=== PATIENT | male | born 1960 | race Hispanic/Latino ===

== ENCOUNTER 2018-06-07 11:14 | Emergency (ER) | payer BC, OTHER ==
[2018-06-07] MEDS ORDERED: Lidocaine 1% 20 ML MDV ONE (12:09)
--- NOTE | 2018-06-07 12:40 | RAD ---
LEFT KNEE 4 VIEWS: HISTORY: Trauma, left knee pain. FINDINGS: No acute fracture or dislocation is identified. POS: [facility]
--- NOTE | 2018-06-07 12:41 | RAD ---
LEFT HAND 3 VIEWS: HISTORY: Left hand pain, injury. FINDINGS: No acute fracture or dislocation is identified. POS: [facility]
--- NOTE | 2018-06-07 12:41 | RAD ---
LEFT LEG 2 VIEWS: History Injury, left leg pain, and laceration. FINDINGS: The left tibia and fibula appear intact. POS: [facility]
--- NOTE | 2018-06-07 12:42 | RAD ---
PA AND LATERAL VIEWS CHEST: History Trauma, chest pain. FINDINGS: The heart size is normal. The lungs are expanded without lobar consolidation, pneumothoraces, or ple ural effusions. No acute osseous abnormalities are seen. IMPRESSION: No radiographic evidence of acute cardiopulmonary process. POS: [facility]
[2018-06-07] MEDS ORDERED: Bacitracin Zinc 1 Packet ONE (13:15)
== END 2018-06-07 13:30 | disposition home or self-care (01) ==
LOC: SCSER 11:14
DX: S63.92XA Sprain of unspecified part of left wrist and hand, initial encounter (principal); S81.012A Laceration without foreign body, left knee, initial encounter; S81.812A Laceration without foreign body, left lower leg, initial encounter; F32.9 Major depressive disorder, single episode, unspecified; E78.1 Pure hyperglyceridemia; Z79.899 Other long term (current) drug therapy; V29.9XXA Motorcycle rider (driver) (passenger) injured in unspecified traffic accident, initial encounter
CPT/HCPCS: 12002; 71046; J2001

== ENCOUNTER 2018-06-17 12:01 | Emergency (ER) | payer BC, OTHER | END 2018-06-17 12:41 | disposition home or self-care (01) | LOC: SCSER 12:01 | DX: S81.011D Laceration without foreign body, right knee, subsequent encounter (principal); S81.812D Laceration without foreign body, left lower leg, subsequent encounter; E78.1 Pure hyperglyceridemia; E78.5 Hyperlipidemia, unspecified; F32.9 Major depressive disorder, single episode, unspecified; Z79.899 Other long term (current) drug therapy ==

== ENCOUNTER 2019-03-16 11:57 | Emergency (ER) | payer BC | END 2019-03-16 12:57 | disposition home or self-care (01) | LOC: SCSER 11:57 | DX: S61.431A Puncture wound without foreign body of right hand, initial encounter (principal); F32.9 Major depressive disorder, single episode, unspecified; E78.2 Mixed hyperlipidemia; Z79.899 Other long term (current) drug therapy; V18.0XXA Pedal cycle driver injured in noncollision transport accident in nontraffic accident, initial encounter | CPT/HCPCS: 99283 ==

== ENCOUNTER 2019-12-09 08:14 | Outpatient (CLI) | payer BC ==
--- NOTE | 2019-12-09 09:24 | ULT ---
ULTRASOUND ABDOMEN: HISTORY: Irritable bowel syndrome with diarrhea. COMPARISON: None. FINDINGS: Real-time, escalante scale, color Doppler, and spectral analysis of the abdomen was performed. Visualized portions of the pancreas and IVC are unremarkable. The proximal aorta measures 3.6 cm in size, abnormally dilated. Diffuse increased hepatic echotexture. No hepatic mass is appreciated. Liver measures 20 cm in length, elongated. Portal vein is patent with antegrade flow. Common bile duct is normal measuring 2 mm. Gallbladder is normal. No pericholecystic fluid. No cholelithiasis. The right kidney measures 11.4 x 6.5 x 4.9 cm without mass, hydronephrosis, or abnormal calcification s. The left kidney measures 12 x 4.1 x 5.1 cm without mass, hydronephrosis, or abnormal calcificatio ns. The splenic length is 12 cm, upper limits of normal. IMPRESSION: 1. Mild hepatomegaly and diffuse hepatic steatosis. 2. Splenic size is upper limits of normal at 12 cm. 3. Dilatation of the proximal aorta measuring 3.6 cm in size. POS: [facility]
== END 2019-12-09 08:15 | disposition home or self-care (01) ==
LOC: SCSULT 08:14
PROVIDERS: ATTEND Internal Medicine Gastroenterology
DX: K58.0 Irritable bowel syndrome with diarrhea (principal); K64.8 Other hemorrhoids; K21.9 Gastro-esophageal reflux disease without esophagitis; G47.30 Sleep apnea, unspecified; R14.0 Abdominal distension (gaseous); K76.0 Fatty (change of) liver, not elsewhere classified; R16.2 Hepatomegaly with splenomegaly, not elsewhere classified; I77.811 Abdominal aortic ectasia
CPT/HCPCS: 93975

== ENCOUNTER 2019-12-18 09:02 | Outpatient (CLI) | payer BC ==
--- NOTE | 2019-12-18 11:31 | CT ---
EXAM: CT ABDOMEN AND PELVIS HISTORY: Right-sided abdominal pain, mainly after eating meals. History of irritable bowel syndrome. Hepatomegaly. COMPARISON: None. Procedure: Multiple contiguous axial images were obtained and a CT of the abdomen and pelvis with IV contrast. C oronal reformats were performed. FINDINGS: Lower Chest: within normal limits. Vessels: Normal caliber aorta. No periaortic fat stranding Heart: Normal heart size. No significant pericardial fluid Abdomen: Portal vein:Patent Gallbladder: No calcified gallstones. Normal caliber wall. Liver: 1.4 x 0.9 cm ill-defined hypodensity in the seventh hepatic segment. Attenuation coefficient o f 52 Hounsfield units. A 0.7 x 0.6 cm hypodensity in the fifth hepatic segment. Hypodensity along the hepatic dome. Pancreas: within normal limits. Spleen: within normal limits. Adrenals: within normal limits. Kidneys: Symmetric enhancement. No obstructive uropathy. Peritoneum: No ascites or free air, no fluid collection. Bowel: No evidence of bowel obstruction. Ileocecal junction is unremarkable. Normal caliber appendix. Scattered fecal material in a nondistended, nondilated colon. Mesentery and Retroperitoneum: No enlarged mesenteric or retroperitoneal lymph nodes. Abdominal Wall: Small umbilical hernia containing mesenteric fat. Pelvis: Reproductive Organs: Reproductive organs are unremarkable. Pelvis: No mass, lymphadenopathy, free air or free fluid. Bladder: within normal limits. Bones: within normal limits. IMPRESSION: 1. Ill-defined hypodensity in the seventh hepatic segment, incompletely evaluated. Consider abdomen M RI to assess for possible hepatic malignancy/metastatic lesion. The follow-up abdomen MRI should be performed in 3-6 months to allow for possible interval growth CODE T
== END 2019-12-18 09:03 | disposition home or self-care (01) ==
LOC: SCSCT 09:02
PROVIDERS: ATTEND Internal Medicine Gastroenterology
DX: R16.0 Hepatomegaly, not elsewhere classified (principal); I77.9 Disorder of arteries and arterioles, unspecified
CPT/HCPCS: 74177

== ENCOUNTER 2020-01-01 09:47 | Outpatient (CLI) | payer BC ==
--- NOTE | 2020-01-01 11:59 | MRI ---
MRI OF THE ABDOMEN WITHOUT AND WITH CONTRAST: COMPARISON: CT abdomen/pelvis 12/18/2019. HISTORY: Hypodensities seen in the right lobe of the liver on prior CT. TECHNIQUE: Multiplanar, multisequence MR images were obtained of the abdomen without and with IV contrast. FINDINGS: There is a 1.3 cm mass in the right lobe of the liver. This demonstrates high T2 signal. On the pos t contrast images, this demonstrates peripheral puddling and gradual fill-in on the delayed phase regine ges. No significant washout of this lesion is seen. Evaluation is slightly limited secondary to res piratory motion artifact. There are 2 adjacent nonenhancing cysts in the left lobe of the liver measuring up to 3 mm in size. The gallbladder, kidneys, adrenal glands, spleen, and pancreas are unremarkable. No abdominal adenop athy is seen. No marrow signal abnormality is present. IMPRESSION: 1. The abnormal lesion in the right lobe of the liver most likely represents a small hemangioma. 2. Hepatic cysts. POS: [facility]
== END 2020-01-01 09:48 | disposition home or self-care (01) ==
LOC: SCSMRI 09:47
PROVIDERS: ATTEND Internal Medicine Gastroenterology
DX: K76.89 Other specified diseases of liver (principal); R16.0 Hepatomegaly, not elsewhere classified
CPT/HCPCS: 36415; 74183; 80053; 80061; 80178; 83036; 84443; 85025